=== PATIENT | female | born 1945 | race Caucasian/White ===

== ENCOUNTER 2018-06-26 01:26 | Inpatient (IN) | payer MEDICARE, OTHER ==
[~2018-06-26] VITALS: Ht 170.2 cm; Wt 134.3 kg
--- NOTE | 2018-06-26 01:38 | NUR ---
PT TO ER BED 5. BIBPA FROM [facility], PER PA STATES PT 02 SAT 84% WITH AMS. ALSO EMT STATES PT HAS LACERATION TO R LEG S/P TRANSFERRING PATIENT FROM WHEELCHAIR TO BED AT SNF. PT PLACED IN GOWN AND ON SUPERVISOR OPERATIONS. VSS/RESP EVEN UNLABORED/NAD NOTED/SKIN WARM AND DRY/DENIES N-V-D/AOX4. AWAITGAVIN CLARK.
--- NOTE | 2018-06-26 01:55 | NUR ---
20G IV TO R AC X 1 ATTEMPT USING ASEPTIC TECH, BLOOD CULT X 2 AND BLOOD HANDED OVER TO THE LAB AT BEDSIDE. IV FLUSHES EASILY WITH NS, NO S/S INFILTRATION NOTED AT THIS TIME.
[2018-06-26] MEDS ORDERED: ACETAMINOPHEN 650 MG/SUPP.RECT RC ONE ×2 (02:00→02:46)
[2018-06-26 02:02] LABS: BASOPHILS % (AUTO) 0.3 % (0.0-2.0); HEMATOCRIT 45 % (33-45); HEMOGLOBIN 14.6 g/dL (11.5-14.8); LYMPHOCYTES % (AUTO) 26.8 % (20.0-44.0); MEAN CORPUSCULAR HGB CONC 32 g/dl (31.0-36.0); MEAN CORPUSCULAR VOLUME 99 fL (82-100); MONOCYTES # (AUTO) 0.6 /CMM (0.1-1.30); MONOCYTES % (AUTO) 7.8 % (2.0-12.0); NEUTROPHILS # (AUTO) 4.8 /CMM (1.8-8.9); NEUTROPHILS % (AUTO) 63.1 % (43.0-81.0); PLATELET COUNT (AUTO) 187 /CMM (150-450); RDW COEFFICIENT OF VARIATION 13.8 (11.5-15.0); RED BLOOD CELL COUNT(AUTO) 4.56 MIL/uL (4.0-5.2); WHITE BLOOD COUNT (AUTO) 7.6 K/uL (4.3-11.0)
--- NOTE | 2018-06-26 02:10 | NUR ---
16FR spencer catheter inserted per sterile protocal. Immediate output 200ML of urine, color straw, clarity cloudy. Urine specimen obtained and handed over to lab at the bedside.
[2018-06-26 02:13] LABS: CALCIUM, SERUM 9.9 mg/dL (8.5-10.1); CARBON DIOXIDE 36 mmol/L (21-32); CHLORIDE 102 mmol/L (98-107); CREATININE 2.2 mg/dL (0.6-1.3); GLUCOSE 183 mg/dL (74-106); POTASSIUM 4.6 mmol/L (3.5-5.1); SODIUM SERUM 142 mmol/L (136-145); UREA NITROGEN, BLOOD 35 mg/dL (7-18)
[2018-06-26 02:19] LABS: ALANINE AMINOTRANSFERASE 11 U/L (12-78); ALBUMIN 3.2 g/dL (3.4-5.0); ALCOHOL, BLOOD < 3 mg/dL (0-0); ALKALINE PHOSPHATASE 44 U/L (46-116); ASPARTATE AMINOTRANSFERASE 14 U/L (15-37); BILIRUBIN,DIRECT 0.1 mg/dL (0.0-0.2); BILIRUBIN,TOTAL 0.4 mg/dL (0.2-1.0)
--- NOTE | 2018-06-26 02:19 | NUR ---
PT TO CT VIA STRETCHER.
[2018-06-26 02:20] LABS: TROPONIN I < 0.017 ng/mL (0.00-0.056)
[2018-06-26 02:21] LABS: ACETAMINOPHEN < 10 ug/ml (10-30); INR 1.02 (0.87-1.13); SALICYLATE 1.1 mg/dL (2.8-20.0)
[2018-06-26 02:24] LABS: APPEARANCE,URINE CLOUDY (CLEAR); BILIRUBIN,URINE NEGATIVE (NEGATIVE); BLOOD, URINE 1+ Ery/uL (NEGATIVE); COLOR,URINE YELLOW (YELLOW); KETONES,URINE NEGATIVE (NEGATIVE); LEUKOCYTE ESTERASE ,URINE 3+ (NEGATIVE); NITRITE, URINE POSITIVE (NEGATIVE); PH,URINE 5.5 (5.0-8.0); PROTEIN,URINE NEGATIVE (NEGATIVE); UGLUCOSE NEGATIVE (NEGATIVE); UROBILINOGEN,URINE 0.2 EU/dL (0.2)
[2018-06-26 02:49] LABS: BACTERIA,URINE Many /HPF (None Seen); SQUAMOUS EPITHELIAL CELL,UR Few /HPF (None Seen); WBC,URINE 81-100 /HPF (0-3)
[2018-06-26] MEDS ORDERED: CEFTRIAXONE 1 G VIAL ONE (02:57)
[2018-06-26] MEDS ORDERED: CEFTRIAXONE 1GM BAG (ER ONLY) 1 GM/50 ML PIGGYBACK IV ONE ×2 (03:00→03:30)
[2018-06-26] MEDS ORDERED: DOCU-141 PO (03:29)
[2018-06-26] MEDS ORDERED: ZINC220C6 PO (03:29)
[2018-06-26] MEDS ORDERED: ASCO500T8 PO (03:29)
[2018-06-26] MEDS ORDERED: PIOG15TA8 PO (03:29)
[2018-06-26] MEDS ORDERED: ACET-868 PO (03:29)
[2018-06-26] MEDS ORDERED: ATOR20TA PO (03:29)
[2018-06-26] MEDS ORDERED: MAGN400O21 PO (03:29)
[2018-06-26] MEDS ORDERED: CHOL200026 PO (03:29)
[2018-06-26] MEDS ORDERED: SERT25TA PO (03:29)
[2018-06-26] MEDS ORDERED: ACET-2605 PO ×2 (03:29)
[2018-06-26] MEDS ORDERED: TIZA4TAB4 PO (03:29)
[2018-06-26] MEDS ORDERED: ZOLP5TAB2 PO (03:29)
[2018-06-26] MEDS ORDERED: MORP15TA7 PO (03:29)
[2018-06-26] MEDS ORDERED: MONT10TA22 PO (03:29)
[2018-06-26] MEDS ORDERED: HYDR-552 PO ×2 (03:29)
[2018-06-26] MEDS ORDERED: TAMO20TA4 PO (03:29)
[2018-06-26] MEDS ORDERED: ALEN70TA3 PO (03:29)
[2018-06-26] MEDS ORDERED: HEPA0.5D3 SQ (03:29)
[2018-06-26] MEDS ORDERED: BISA10SU61 RC (03:29)
[2018-06-26] MEDS ORDERED: AMIT25TA9 PO (03:29)
[2018-06-26] MEDS ORDERED: FAMO20TA8 PO (03:29)
[2018-06-26] MEDS ORDERED: NA P133E RC (03:29)
[2018-06-26] MEDS ORDERED: INSU300I SQ (03:29)
[2018-06-26] MEDS ORDERED: CLON0.5T12 PO (03:29)
[2018-06-26] MEDS ORDERED: SITA50TA PO (03:29)
[2018-06-26] MEDS ORDERED: MELA3TAB PO (03:29)
[2018-06-26] MEDS ORDERED: PREG225C PO (03:29)
[2018-06-26] MEDS ORDERED: AZITHROMYCIN 500 MG in IV D5W 250 ML IV ONE (03:30)
[2018-06-26] MEDS ORDERED: LIDOCAINE /MPF 1% VIAL 5 ML VIAL ONE (03:40)
--- NOTE | 2018-06-26 03:40 | NUR ---
LACERATION TRAY SET UP AT THE BEDSIDE.
[2018-06-26] MEDS ORDERED: AZITHROMYCIN 500 MG VIAL ONE ×2 (03:43→21:33)
--- NOTE | 2018-06-26 03:45 | NUR ---
BED 114-2
--- NOTE | 2018-06-26 03:50 | NUR ---
MD AT BEDSIDE TO SUTURE.
--- NOTE | 2018-06-26 04:08 | NUR ---
REPORT GIVEN TO DARIUSZ GA FOR RDAHA.
--- NOTE | 2018-06-26 04:09 | NUR ---
[facility] DARIUS[facility] GONZALEZ MADE AWARE PT TO BE ADMITTED.
--- NOTE | 2018-06-26 04:40 | NUR ---
CRACKER OFFUNDERGROUND REPAIRER NOTES: PT ADMITTED FROM ER VIA [facility] WITH ADMITTING DIAGNOSIS OF PNEUMONIA. PT ALERT, ORIENTED X4. ABLE TO MAKE NEEDS KNOWN. NO ACUTE DISTRESS NOTED. DENIES PAIN AND DISCOMFORT AT THIS TIME. ON 3LPM NASAL CANNULA, SATURATING WELL. NO SOB NOTED. IV ON RIGHT ANTECUBITAL #20 INTACT AND PATENT, FLUSHING WELL. ON TELE MONITOR SINUS RHYTHM HR 81BPM. BULLOCK CATHETER INTACT WITH CLOUDY URINE OUTPUT. ORDERS RECEIVED FROM EMPLOYEE COMMUNICATIONS MANAGER (HUMPHREY ZHENG NP) ORDERS CARRIED OUT. PER HUMPHREY ZHENG, HOLD ALL MEDS TILL DR. FU COMES IN AM. PERTINENT ASSESSMENTS DONE. PICTURE TAKEN AND PLACED ON CHART. VITAL SIGNS TAKEN AND RECORDED. KEPT CLEAN, DRY AND COMFORTABLE. SAFETY AND FALL PRECAUTIONS OBSERVED AND MAINTAINED. WILL CONTINUE TO MONITOR PT.
--- NOTE | 2018-06-26 04:42 | NUR ---
PT TRANSPORTED TO TELE 114 VIA STRETCHER ON CAFE LEAD WITH RN PER ACLS PROTOCOL. VSS.
[2018-06-26 04:56] VITALS: BP 107/54
[2018-06-26] MEDS ORDERED: IV D5/0.45 NACL 1,000 ML IV PRN (05:30)
--- NOTE | 2018-06-26 06:45 | NUR ---
FOOD SERVICE COUNTER CLERK NOTES: NO APPARENT DISTRESS NOTED. DENIES PAIN AND DISCOMFORT AT THIS TIME. NO SOB NOTED. IV ON RIGHT AC INTACT AND PATENT WITH IVF D5 1/2NS RUNNING AT 80ML/HR, INFUSING WELL. SINUS RHYTHM ON TELE MONITOR, HR 85BPM. KEPT CLEAN, DRY AND COMFORTABLE. SAFETY AND FALL PRECAUTIONS OBSERVED AND MAINTAINED. WILL ENDORSE TO DAY SHIFT NURSE FOR CONTINUITY OF CARE.
--- NOTE | 2018-06-26 07:15 | NUR ---
TELE/RN INITIAL NOTES RECEIVED PT IN BED. A/OX4 WITH EPISODE OF CONFUSION. ON 3LPM O2 VIA NC, SATURATING WELL. NO SOB NOTED. DENIES PAIN AT THIS TIME. SR ON TELEMONITOR. WITH INTACT AND IN PLACED FC DRAINING YELLOW COLORED URINE. WITH ONGOING IVF D51/2 NS AT 80 ML/HR INFUSING WELL ON RAC. HOB ELEVATED. SAFETY MEASURES AND ASPIRATION PRECAUTION IN PLACED. CALL LIGHT WITHIN REACH. STILL FOR SPUTUM COLLECTION. WILL FOLLOW UP AND WILL CONT TO MONITOR
[2018-06-26 08:00] VITALS: BP 105/54
[2018-06-26 12:00] VITALS: BP 105/61
[2018-06-26 16:00] VITALS: BP 125/77
--- NOTE | 2018-06-26 17:28 | NUR ---
Patient is alert, resides at [facility] [phone]. She requires assistance with adl's. Current dc plan is to return to SNF once discharge. Addendum: 06/26/18 at 1729 by AZUL FAIR RN Amended: Links added.
--- NOTE | 2018-06-26 17:30 | NUR ---
RN NOTES SEEN AND EXAMINED BY DR FU. MED RECON DONE BY . MADE NEW ORDERS: ACCUCHECK QACHS WITH AGGRESSIVE SLIDING SCALE GLARGINE 40UNITS Q12HRS CLARIFIED WITH DR FU IF WANT TO CONT CARDIAC DIET OR CHANGE TO CCHO, PER OK TO CONT CARDIAC DIET
--- NOTE | 2018-06-26 18:28 | NUR ---
ARA D/C PER DR. FU.
[2018-06-26] MEDS ORDERED: *INSULIN REGULAR(HUMULIN R)HUM 100 UNIT/ML VIAL SQ PRN (18:30)
[2018-06-26] MEDS ORDERED: INSULIN REGULAR, HUMAN 100 UNIT/ML 3 ML VIAL SQ PRN (18:30)
[2018-06-26] MEDS ORDERED: DEXTROSE 50%-WATER 50 ML DISP.SYRIN IV PRN ×2 (18:30→21:00)
--- NOTE | 2018-06-26 19:05 | NUR ---
MEDICAL OFFICE PROFESSIONAL INSTRUCTOR NOTE RECEIVED PT RESTING WITH HOB ELEVATED, AOX1-2, CONFUSED, TANGENTIAL THOUGHT PROCESS, DENIES PAIN, TELE SR, NO S/SX OF RESPIRATORY OR CARDIAC DISTRESS, ON 3L NC, BED ALARM IN PLACE FOR SAFETY, RAC #20G SL PATENT FLUSHING WELL, SITE CLEAN AND DRY, SKIN KEPT CLEAN AND DRY, PT IS INCONTINENT, SAFETY MAINTAINED AT ALL TIMES, BED IN LOW LOCKED POSITION, WILL CONTINUE TO MONITOR FOR ANY CHANGES IN CONDITION.
--- NOTE | 2018-06-26 19:15 | NUR ---
RN NOTES PT IN STABLE CONDITION. NO ACUTE CHANGES THROUGHOUT SHIFT, SAFETY MEASURES AND ASPIRATION PRECAUTION OBSERVED AT ALL TIMES. ALL NEEDS ANTICIPATED. ENDORSED TO PM SHIFT RN FOR RADHA
[2018-06-26 20:00] VITALS: BP 112/54
[2018-06-26] MEDS ORDERED: INSULIN GLARGINE, 100 UNIT/ML CARTRIDGE SQ SCH (21:00)
[2018-06-26] MEDS: BLOOD SUGAR DIAGNOSTIC 1 EACH STRIP IN SCH (21:22)
[2018-06-26] MEDS: ATORVASTATIN 40 MG TABLET PO SCH (21:22)
[2018-06-26] MEDS: INSULIN GLARGINE, 100 UNIT/ML CARTRIDGE SQ SCH (21:27)
[2018-06-26] MEDS: *INSULIN ASPART NOVOLOG 100 UNIT/ML CARTRIDGE SQ PRN (21:30)
[2018-06-26] MEDS: AZITHROMYCIN 500 MG in IV D5W 250 ML IV SCH (21:35)
[2018-06-26] MEDS ORDERED: BLOOD SUGAR DIAGNOSTIC 1 EACH STRIP IN SCH (22:00)
[2018-06-27] VITALS (7 sets, daily range): BP systolic 103–131; BP diastolic 53–65
[2018-06-27] MEDS: CEFTRIAXONE 1 G in IV D5W 50 ML IV SCH (03:18)
--- NOTE | 2018-06-27 07:30 | NUR ---
INITIAL PT RESTING WITH HOB ELEVATED, AOX1-2, CONFUSED, TANGENTIAL THOUGHT PROCESS, DENIES PAIN, TELE SR AT 79, NO S/SX OF RESPIRATORY OR CARDIAC DISTRESS, ON 3L NC, BED ALARM IN PLACE FOR SAFETY, RAC #20G SL PATENT FLUSHING WELL, SITE CLEAN AND DRY, SKIN KEPT CLEAN AND DRY, PT IS INCONTINENT, SAFETY MAINTAINED AT ALL TIMES, BED IN LOW LOCKED POSITION, WILL CONTINUE TO MONITOR FOR ANY CHANGES IN CONDITION.
[2018-06-27] MEDS: BLOOD SUGAR DIAGNOSTIC 1 EACH STRIP IN SCH ×4 (07:49→21:03)
[2018-06-27] MEDS: *INSULIN ASPART NOVOLOG 100 UNIT/ML CARTRIDGE SQ PRN ×3 (08:05→18:33)
[2018-06-27] MEDS: INSULIN GLARGINE, 100 UNIT/ML CARTRIDGE SQ SCH ×2 (10:06→21:08)
[2018-06-27] MEDS: TAMOXIFEN CITRATE 10 MG TABLET PO SCH (11:41)
--- NOTE | 2018-06-27 17:22 | NUR ---
RT NOTES PT REFUSED ABG. NO DISTRESS/ OR SOB NOTED ON 3 LPM CANNULA. WILL CONT TO MONITOR PT.
[2018-06-27 17:52] LABS: ABG BASE EXCESS 6.4 mmol/L; ABG OXYGEN SATURATION 95.7 % (92.0-98.5); ABG PCO2 51.7 mmHg (35.0-45.0); ABG PH 7.413 (7.350-7.450); ABG PO2 85.1 mmHg (75.0-100.0); AaDO2 82.6 mmHg; COHb 0.1 % (0.5-1.5); MetHb 0.9 % (0.0-1.5); O2Hb 94.7 % (94.0-97.0); SITE, ABG Right Radial; VENT MODE, BG Nasal Cannula
--- NOTE | 2018-06-27 18:03 | NUR ---
RELAYED ABG TO DR. FU ,WILL KEEP PT. IN [place] FOR NOW REPEAT ABG IN AM.
[2018-06-27] MEDS: Z GUARD REMEDY 2 OZ OINT TP SCH (18:32)
--- NOTE | 2018-06-27 19:40 | NUR ---
CALL CENTER COORDINATOR INITIAL NOTES, RECEIVED PT IN BED SLEEPING AT THIS TIME BUT EASILY AROUSABLE, ON 3LPM O2 VIA NC, SATURATING WELL >96% AT THIS TIME, BREATHING EVEN AND UNLABORED, NO SOB NOTED AT THIS TIME, SR ON TELEMONITOR, RAC 20G PATENT AND INTACT S/L, HOB ELEVATED, ALL SAFETY MEASURES AND ASPIRATION PRECAUTION IN PLACED, CALL LIGHT WITHIN REACH, WILL CONTINUE TO MONITOR CLOSELY.
[2018-06-27] MEDS: AZITHROMYCIN 500 MG in IV D5W 250 ML IV SCH (20:55)
[2018-06-27] MEDS: ATORVASTATIN 40 MG TABLET PO SCH (21:03)
[2018-06-27] MEDS: INSULIN ASPART/LISPRO 100 UNIT/ML CARTRIDGE SQ PRN (21:06)
[2018-06-28] VITALS (8 sets, daily range): BP systolic 101–141; BP diastolic 59–72
[2018-06-28] MEDS: CEFTRIAXONE 1 G in IV D5W 50 ML IV SCH (03:21)
--- NOTE | 2018-06-28 07:00 | NUR ---
WASTE TRANSPORTATION TECHNICIAN CLOSING NOTES, PT IN BED SLEEPING AT THIS TIME BUT EASILY AROUSABLE, ON 3LPM O2 VIA NC, SATURATING WELL >96% AT THIS TIME, BREATHING EVEN AND UNLABORED, NO SOB NOTED AT THIS TIME, SR ON TELEMONITOR, RAC 20G PATENT AND INTACT S/L, HOB ELEVATED, NO SIGNIFICANT CHANGE IN CONDITION DURING THE SHIFT, ALL SAFETY MEASURES AND ASPIRATION PRECAUTION IN PLACED, CALL LIGHT WITHIN REACH, WILL ENDORSE CONTINUITY OF CARE TO ONCOMING NURSE.
[2018-06-28 07:07] LABS: BASOPHILS % (AUTO) 0.2 % (0.0-2.0); EOSINOPHILS % (AUTO) 0.4 % (0.0-6.0); HEMATOCRIT 41 % (33-45); HEMOGLOBIN 12.8 g/dL (11.5-14.8); LYMPHOCYTES # (AUTO) 1.6 /CMM (0.8-4.8); LYMPHOCYTES % (AUTO) 23.4 % (20.0-44.0); MEAN CORPUSCULAR HGB CONC 31 g/dl (31.0-36.0); MEAN CORPUSCULAR VOLUME 99 fL (82-100); MONOCYTES # (AUTO) 0.5 /CMM (0.1-1.30); MONOCYTES % (AUTO) 6.5 % (2.0-12.0); NEUTROPHILS # (AUTO) 4.9 /CMM (1.8-8.9); NEUTROPHILS % (AUTO) 69.5 % (43.0-81.0); PLATELET COUNT (AUTO) 184 /CMM (150-450); RDW COEFFICIENT OF VARIATION 13.6 (11.5-15.0); RED BLOOD CELL COUNT(AUTO) 4.16 MIL/uL (4.0-5.2)
[2018-06-28 07:13] LABS: CALCIUM, SERUM 9.4 mg/dL (8.5-10.1); CARBON DIOXIDE 29 mmol/L (21-32); CHLORIDE 104 mmol/L (98-107); CREATININE 1.6 mg/dL (0.6-1.3); GLUCOSE 157 mg/dL (74-106); POTASSIUM 3.8 mmol/L (3.5-5.1); SODIUM SERUM 143 mmol/L (136-145); UREA NITROGEN, BLOOD 29 mg/dL (7-18)
--- NOTE | 2018-06-28 07:30 | NUR ---
TELE/RN INITIAL NOTES RECEIVED PT IN BED. A/OX1 WITH SEVERE CONFUSION. ON ROOM AIR, SATURATING WELL. NO SOB NOTED. DENIES PAIN AT THIS TIME. SR ON TELEMONITOR. HOB ELEVATED. SAFETY MEASURES AND ASPIRATION PRECAUTION IN PLACED. CALL LIGHT WITHIN REACH. WILL FOLLOW UP AND WILL CONT TO MONITOR
[2018-06-28] MEDS: BLOOD SUGAR DIAGNOSTIC 1 EACH STRIP IN SCH ×4 (08:04→21:27)
[2018-06-28] MEDS: INSULIN GLARGINE, 100 UNIT/ML CARTRIDGE SQ SCH ×2 (08:05→21:00)
[2018-06-28] MEDS: TAMOXIFEN CITRATE 10 MG TABLET PO SCH (08:05)
[2018-06-28] MEDS: Z GUARD REMEDY 2 OZ OINT TP SCH (08:07)
--- NOTE | 2018-06-28 08:30 | NUR ---
USABILITY ENGINEER NOTES BS 157 NO COVERAGE GIVEN D/T PATIENT REFUSED TO EAT. 30 UNITS LANTUS GIVEN
--- NOTE | 2018-06-28 09:55 | NUR ---
WOUND CARE CONSULT: PT PRESENTS WITH ABRASIONS TO RT LOWER LEG AND SUTURED LACERATION DISTALLY, PRESENT ON ADMISSION. PT ALSO NOTED TO BE INCONTINENT WITH SKIN FOLD REDNESS AND SCARRING/STAINING OF SACRAL/BUTTOCKS AREAS AND LEFT CHEST SCARRING, PRESENT ON ADMISSION. RECOMMEND DPM CONSULT. ALL SKIN PROTECTION MEASURES AND WOUND CARE RECOMMENDATIONS DISCUSSED WITH NURSING STAFF. PT ON MARVEL ISOFLEX LOW AIRLOSS BED. WILL SEE PRN. JURADO IN AGREEMENT WITH PLAN OF CARE. Addendum: 06/28/18 at 0957 by DARIAN FRANCISCO WNDNU Amended: Links added.
[2018-06-28 10:56] LABS: ABG BASE EXCESS 1.3 mmol/L; ABG OXYGEN SATURATION 94.4 % (92.0-98.5); ABG PCO2 32.8 mmHg (35.0-45.0); ABG PH 7.485 (7.350-7.450); ABG PO2 72.4 mmHg (75.0-100.0); AaDO2 38.1 mmHg; MetHb 0.5 % (0.0-1.5); SITE, ABG Right Radial; VENT MODE, BG ROOM AIR
--- NOTE | 2018-06-28 10:57 | NUR ---
DRAPERY OPERATOR NOTES DR. FU INFORMED THAT D/T PT SIZE WILL BE UNABLE TO PERFORM MRI. DR MCWILLIAMS
--- NOTE | 2018-06-28 11:14 | NUR ---
UNABLE TO DO MRI/WEIGHT/SIZE WON'T FIT IN MRI TUNNEL. NURSE IS AWARE OF IT.
--- NOTE | 2018-06-28 11:24 | NUR ---
CLERICAL AND OFFICE SUPPORT WORKERS NOTES BS 147 NO HUMALOG GIVEN D/T PATIENT NOT EATING
[2018-06-28] MEDS: GLUCERNA SHAKE 237 ML CAN PO SCH (18:04)
--- NOTE | 2018-06-28 18:11 | NUR ---
WELT TRIMMING MACHINE OPERATOR NOTES PATIENT ONLY DRANK FEW SIPS OF GLUCERNA, PATIENT REFUSING TO EAT ANY OF HER FOOD, WILL CONTINUE TO MONITOR BLOOD GLUCOSE, LAST BG 110 MG/DL NO COVERAGE GIVEN.
--- NOTE | 2018-06-28 18:29 | NUR ---
OCULARIST ENDING NOTES PATEIN STABLE WITH NO ACUTE CHANGES NOTED. ALL DUE MEDS GIVEN, ALL NEEDS MET, WILL CONTINUE TO MONITOR.
--- NOTE | 2018-06-28 18:50 | NUR ---
REAL ESTATE ADMINISTRATOR NOTES RE; MRSA NARES DR. FU DOES NOT WANT ANY BACTROBAN
--- NOTE | 2018-06-28 19:40 | NUR ---
MACHINE BOOKKEEPER INITIAL NOTES, RECEIVED PT IN BED AWAKE ALERT TO SELF BUT WITH EPISODES OF CONFUSION, MD AWARE, ON 3LPM O2 VIA NC, SATURATING WELL >96% AT THIS TIME, BREATHING EVEN AND UNLABORED, NO SOB NOTED AT THIS TIME, NO C/O PAIN OR DISCOMFORT AT THIS TIME, SR ON TELEMONITOR, RAC 20G PATENT AND INTACT S/L, HOB ELEVATED, ALL SAFETY MEASURES AND ASPIRATION PRECAUTION IN PLACED, CALL LIGHT WITHIN REACH, WILL CONTINUE TO MONITOR CLOSELY
[2018-06-28] MEDS ORDERED: AZITHROMYCIN 250 MG TABLET PO SCH (21:00)
[2018-06-28] MEDS: ATORVASTATIN 10 MG TABLET PO SCH (21:25)
[2018-06-28] MEDS: *INSULIN ASPART NOVOLOG 100 UNIT/ML CARTRIDGE SQ PRN (21:38)
[2018-06-29] VITALS: BP 148/75
[2018-06-29 04:00] VITALS: BP 115/65
--- NOTE | 2018-06-29 06:55 | NUR ---
FINANCIAL COUNSELOR CLOSING NOTES, PT IN BED AWAKE ALERT TO SELF BUT WITH EPISODES OF CONFUSION, MD AWARE, ON 3LPM O2 VIA NC, SATURATING WELL >97% AT THIS TIME, BREATHING EVEN AND UNLABORED, NO SOB NOTED AT THIS TIME, NO C/O PAIN OR DISCOMFORT AT THIS TIME, SR ON TELEMONITOR, RAC 20G PATENT AND INTACT S/L, HOB ELEVATED, ALL SAFETY MEASURES AND ASPIRATION PRECAUTION IN PLACED, CALL LIGHT WITHIN REACH, NO SIGNIFICANT CHANGE IN HEALTH CONDITION, WILL ENDORSE CONTINUITY OF CARE TO ONCOMING NURSE.
[2018-06-29 08:00] VITALS: BP 140/72
[2018-06-29] MEDS: Z GUARD REMEDY 2 OZ OINT TP SCH (08:06)
[2018-06-29] MEDS: ASPIRIN EC 81 MG TABLET.DR PO SCH (08:06)
[2018-06-29] MEDS: TAMOXIFEN CITRATE 10 MG TABLET PO SCH (08:06)
[2018-06-29] MEDS: BLOOD SUGAR DIAGNOSTIC 1 EACH STRIP IN SCH ×4 (08:06→21:26)
[2018-06-29] MEDS: GLUCERNA SHAKE 237 ML CAN PO SCH ×2 (08:07→16:38)
[2018-06-29] MEDS: INSULIN ASPART/LISPRO 100 UNIT/ML CARTRIDGE SQ PRN ×2 (08:08→12:23)
[2018-06-29] MEDS: INSULIN GLARGINE, 100 UNIT/ML CARTRIDGE SQ SCH ×2 (08:18→21:00)
[2018-06-29 12:00] VITALS: BP 108/71
--- NOTE | 2018-06-29 12:23 | NUR ---
RN NOTES INSULIN HELD AT THIS TIME, PATIENT REFUSING TO EAT LUNCH. ENCOURAGED ORAL INTAKE, BUT STILL REFUSING.
[2018-06-29 16:00] VITALS: BP 113/59
--- NOTE | 2018-06-29 18:03 | NUR ---
RN NOTES PATIENT REFUSING TO EAT DINNER, ENCOURAGED TO DRINK GLUCERNA, BUT PATIENT STILL REFUSING, INSULIN HELD AT THIS TIME. EXPLAINED RISKS OF POOR INTAKE. CALL LIGHT WITHIN REACH, WILL CONTINUE TO MONITOR.
--- NOTE | 2018-06-29 18:47 | NUR ---
RN NOTES PATIENT STILL NOTED WITH POOR PO INTAKE DURING THIS SHIFT, PATIENT IS MORE ALERT, BUT STILL CONFUSED, SKIN CARE RENDERED, WOUND TREATMENT RENDERED, TURNED AND REPOSITIONED EVERY 2 HOURS, HORACIO. HEELS OFFLOADED, CALL LIGHT WITHIN REACH, WILL ENDORSE TO CRITICAL CARE PHYSICIAN FOR RADHA.
--- NOTE | 2018-06-29 19:40 | NUR ---
MANAGER COLLEGE INITIAL NOTES, RECEIVED PT IN BED SLEEPING AT THIS TIME BUT EASILY AROUSABLE TO VERBAL AND TACTILE STIMULI, , BREATHING EVEN AND UNLABORED, NO SOB NOTED AT THIS TIME ON 3LPM O2 VIA NC, SATURATING WELL >96% AT THIS TIME, , NO C/O PAIN OR DISCOMFORT AT THIS TIME, SR ON TELEMONITOR, RAC 20G PATENT AND INTACT S/L, HOB ELEVATED, ALL SAFETY MEASURES AND ASPIRATION PRECAUTION IN PLACED, CALL LIGHT WITHIN REACH, WILL CONTINUE TO MONITOR CLOSELY
[2018-06-29 20:00] VITALS: BP 140/76
[2018-06-29] MEDS: ATORVASTATIN 10 MG TABLET PO SCH (21:23)
[2018-06-29] MEDS: *INSULIN ASPART NOVOLOG 100 UNIT/ML CARTRIDGE SQ PRN (21:27)
[2018-06-30] VITALS: BP 122/59
[2018-06-30 04:00] VITALS: BP 140/76
--- NOTE | 2018-06-30 06:56 | NUR ---
LABORER SYRUP MACHINE CLOSING NOTES, PT IN BED AWAKE ALERT TO SELF,CONTINUE WITH EPISODES OF CONFUSION AND POOR INTAKE, MD AWARE, ON 3LPM O2 VIA NC, SATURATING WELL >96% AT THIS TIME, BREATHING EVEN AND UNLABORED, NO SOB NOTED AT THIS TIME, NO C/O PAIN OR DISCOMFORT AT THIS TIME, SR ON TELEMONITOR, RAC 20G PATENT AND INTACT S/L, HOB ELEVATED, ALL SAFETY MEASURES AND ASPIRATION PRECAUTION IN PLACED, CALL LIGHT WITHIN REACH, NO SIGNIFICANT CHANGE IN HEALTH CONDITION, WILL ENDORSE CONTINUITY OF CARE TO ONCOMING NURSE.
[2018-06-30] MEDS: BLOOD SUGAR DIAGNOSTIC 1 EACH STRIP IN SCH ×2 (07:30→11:38)
[2018-06-30 08:00] VITALS: BP 121/82
[2018-06-30] MEDS: GLUCERNA SHAKE 237 ML CAN PO SCH (08:00)
[2018-06-30] MEDS: TAMOXIFEN CITRATE 10 MG TABLET PO SCH (09:05)
[2018-06-30] MEDS: ASPIRIN EC 81 MG TABLET.DR PO SCH (09:05)
[2018-06-30] MEDS: INSULIN GLARGINE, 100 UNIT/ML CARTRIDGE SQ SCH (09:06)
[2018-06-30] MEDS: INSULIN ASPART/LISPRO 100 UNIT/ML CARTRIDGE SQ PRN ×2 (09:08→11:42)
[2018-06-30] MEDS: Z GUARD REMEDY 2 OZ OINT TP SCH (09:11)
--- NOTE | 2018-06-30 13:59 | NUR ---
Handoff report to nurse joint supervisor, DARIUSZ Asencio at [facility]. Clinton Yousif RN
== END 2018-06-30 15:37 | DRG 193 ==
LOC: ER 01:28 → TELE1 03:56 → MEDSG1 06-30 08:49
PROVIDERS: ADMIT Internal Medicine; ATTEND Internal Medicine
DX: J18.9 Pneumonia, unspecified organism (principal); G92 Toxic encephalopathy; I13.0 Hypertensive heart and chronic kidney disease with heart failure and stage 1 through stage 4 chronic kidney disease, or unspecified chronic kidney disease; N18.4 Chronic kidney disease, stage 4 (severe); C79.51 Secondary malignant neoplasm of bone; N39.0 Urinary tract infection, site not specified; E11.22 Type 2 diabetes mellitus with diabetic chronic kidney disease; K21.9 Gastro-esophageal reflux disease without esophagitis; C50.912 Malignant neoplasm of unspecified site of left female breast; S81.811A Laceration without foreign body, right lower leg, initial encounter; E66.01 Morbid (severe) obesity due to excess calories; I25.10 Atherosclerotic heart disease of native coronary artery without angina pectoris; J44.9 Chronic obstructive pulmonary disease, unspecified; I87.2 Venous insufficiency (chronic) (peripheral); I50.9 Heart failure, unspecified; Z80.6 Family history of leukemia; Z87.891 Personal history of nicotine dependence; Z90.710 Acquired absence of both cervix and uterus; R09.02 Hypoxemia; E03.9 Hypothyroidism, unspecified; D64.9 Anemia, unspecified
CPT/HCPCS: 36415; 36600; 70450-TC; 71045-TC; 72125-TC; 73590-TC; 73630-TC; 80048-TC; 80076-TC; 80305; 81000-TC; 82962-TC; 83605-TC; 83880; 84484-TC; 85025-TC; 85730-TC; 87040-TC; 87081-TC; 87086-TC; 87186-TC; A4216; A4606; A6253; A6402; G0480; J0456; J0696; J1815; J3490; J7050; J7060; Z7610